=== PATIENT | female | born 1965 | race Caucasian/White ===

== ENCOUNTER 2023-03-11 07:02 | Emergency (ER) | payer OTHER, MEDICAID ==
[~2023-03-11] VITALS: Ht 162.6 cm; Wt 81.6 kg
[2023-03-11 07:29] VITALS: BP_SYST 154; PULSE 77; RESP 20; TEMP 98.1; O2SAT 99
[2023-03-11] MEDS ORDERED: RIVA1TAB PO (09:18)
[2023-03-11] MEDS ORDERED: TRAM50TA2 PO (10:27)
[2023-03-11 10:33] VITALS: BP_SYST 144; PULSE 75; RESP 16; TEMP 97.6; O2SAT 97
== END 2023-03-11 10:33 | disposition home or self-care (01) ==
LOC: SED 07:02
DX: I82.402 Acute embolism and thrombosis of unspecified deep veins of left lower extremity (principal); R22.42 Localized swelling, mass and lump, left lower limb; Z79.899 Other long term (current) drug therapy
CPT/HCPCS: 93971; 99284